=== PATIENT | male | born 1965 | race Caucasian/White ===

== ENCOUNTER 2024-08-09 12:15 | Outpatient (CLI) | payer OTHER, SELFPAY | END 2024-08-09 12:16 | disposition home or self-care (01) | LOC: AMB 08-15 01:23 | PROVIDERS: PCP Family Medicine; Visit Provider Internal Medicine | DX: S99.912A Unspecified injury of left ankle, initial encounter (principal); W30.89XA Contact with other specified agricultural machinery, initial encounter; Y92.79 Other farm location as the place of occurrence of the external cause | CPT/HCPCS: A0425; A0433 ==